=== PATIENT | female | born 1975 | race Caucasian/White ===

== ENCOUNTER 2017-06-01 05:58 | Inpatient (IN) | payer OTHER ==
[~2017-06-01 05:58] MED LIST: Buffered Lidocaine 0.9% SYRIN* 5 ML/SYR SYRINGE INTRADERM ONE
[2017-06-01] MEDS ORDERED: Scopolamine 1.5 mg* PATCH TRANSDERM ONE (06:00)
[2017-06-01] MEDS ORDERED: Dexamethasone IV* 4 MG/ML 1 ML (4 MG) IV SLOW PU ONE (06:00)
[2017-06-01] MEDS ORDERED: Famotidine IV* 10 MG/ML 2 ML (20 mg) IV ONE (06:00)
[2017-06-01] MEDS ORDERED: Famotidine IV* 10 MG/ML 2 ML (20 mg) ONE (06:08)
[2017-06-01] MEDS ORDERED: Dexamethasone IV* 4 MG/ML 1 ML (4 MG) ONE (06:09)
[2017-06-01] MEDS ORDERED: Buffered Lidocaine 0.9% SYRIN* 5 ML/SYR SYRINGE ONE (06:09)
[2017-06-01] MEDS ORDERED: Scopolamine 1.5 mg* PATCH ONE (06:09)
[2017-06-01] MEDS ORDERED: Clindamycin 900 MG IVPREMIX(* 900 MG/50 ML SDV IV ONE ×2 (06:09→07:00)
[2017-06-01] MEDS ORDERED: Ciprofloxacin 400MG IVPREMIX(* 400 MG/200 ML BAG IVPB ONE (07:00)
[2017-06-01] MEDS ORDERED: Ciprofloxacin 400MG IVPREMIX(* 400 MG/200 ML BAG ONE (07:24)
[2017-06-01] MEDS ORDERED: Bupivacaine 0.25% SDV* 30 ML ONE (07:30)
[2017-06-01] MEDS ORDERED: Lidocaine 2% PF * 5 ML VIAL ONE (07:39)
[2017-06-01] MEDS ORDERED: Propofol* 10 MG/ML 20 ML BTL IV PUSH ONE ×2 (07:39→08:12)
[2017-06-01] MEDS ORDERED: Midazolam* 1 MG/ML 5 ML VIAL (5 MG) ONE (07:40)
[2017-06-01] MEDS ORDERED: fentaNYL* 50 MCG/ML 2 ML VIAL (100 MCG VIAL) ONE ×3 (07:40→10:45)
[2017-06-01] MEDS ORDERED: Rocuronium* 10 MG/ML VIAL ONE (07:40)
[2017-06-01] MEDS ORDERED: PROCHLORPERAZINE INJ 5 MG/ML 2 ML VIAL IV PRN (07:45)
[2017-06-01] MEDS ORDERED: Acetaminophen IV 1GM/100ML * 1,000 MG/100 ML VIAL IVPB ONE (07:45)
[2017-06-01] MEDS ORDERED: Metoprolol Tartrate IV* 1 MG/ML 5 ML VIAL ONE (08:12)
[2017-06-01] MEDS ORDERED: Phenylephrine IV* 40 MCG/ML 10 ML SYRINGE ONE (08:36)
[2017-06-01] MEDS ORDERED: EPHEDrine (Pressors)* 50 MG/ML VIAL ONE (08:40)
[2017-06-01] MEDS ORDERED: Ondansetron INJ* 2 MG/ML VIAL ONE (08:49)
[2017-06-01] MEDS ORDERED: Glycopyrrolate IV* 0.2 MG/ML 1 ML VIAL ONE (09:17)
[2017-06-01] MEDS ORDERED: Neostigmine Methylsulfate* 2 MG/2 ML SYRINGE ONE (09:17)
[2017-06-01] MEDS ORDERED: Acetaminophen ADULT LIQ* 650 MG/20.3 ML UDC PO PRN (09:30)
[2017-06-01] MEDS ORDERED: diPHENhydraMINE IV* 50 MG/ML 1 ml VIAL (BENADRYL) SLOW PUSH PRN (09:30)
--- NOTE | 2017-06-01 09:30 | SURGPN ---
Brief Operative Note - Surgery Procedures: Procedures Pre-OP Diagnoses: Clinically severe obesity Post-op Diagnosis: same Procedure: Laparoscopic sleeve gastrectomy Surgeon: Andrew Asst: Alcon Mccain: CLAUDIO Trejo EBL: minimal IVF: 1600cc LR Specimen: portion of stomach Drains: none
[2017-06-01] MEDS ORDERED: PROCHLORPERAZINE INJ 5 MG/ML 2 ML VIAL ONE (09:53)
[2017-06-01] MEDS: fentaNYL* 50 MCG/ML 2 ML VIAL (100 MCG VIAL) IV PRN ×4 (09:53→11:17)
[2017-06-01] MEDS ORDERED: Acetaminophen IV 1GM/100ML * 100 ML ONE (09:53)
[2017-06-01] MEDS ORDERED: Famotidine IV * 20 MG in NS 0.9% 100 ML* 100 ML IVPB SCH (10:00)
[2017-06-01] MEDS: Ketorolac INJ* 30 MG/ML 1 ML VIAL IV PRN ×2 (12:25→20:25)
[2017-06-01] MEDS: Heparin VIAL(*) 5000 UNITS/ML VIAL (FIVE THOUSAND) SUBCUT SCH ×2 (14:20→22:59)
[2017-06-01] MEDS: HYDROmorphone INJ* 2 MG/ML CARPUJECT SYRINGE IV PRN (17:07)
[2017-06-01] MEDS: Ondansetron INJ* 2 MG/ML VIAL IV PRN (17:12)
[2017-06-01] MEDS: Famotidine IV* 10 MG/ML 2 ML (20 mg) IV SCH (18:30)
--- NOTE | 2017-06-02 01:21 | OP ---
CC: NICOL; Shalonda Cárdenas NP * DATE OF OPERATION: 06/01/17 - ROOM #353 DATE OF : 77 SURGEON: Greg Morales MD OIM ARCHITECT: SALONI Leon ANESTHESIOLOGIST: Gilberto Trejo MD ANESTHESIA: General anesthesia. PRE-OP DIAGNOSES: 1. Clinically severe obesity. 2. Obstructive sleep apnea. POST-OP DIAGNOSES: 1. Clinically severe obesity. 2. Obstructive sleep apnea. OPERATIVE PROCEDURE: Laparoscopic sleeve gastrectomy. ESTIMATED BLOOD LOSS: Minimal blood loss. FLUIDS: 1600 cc of crystalloid fluid given. SPECIMEN: Portion of stomach. DRAINS: None. DESCRIPTION OF PROCEDURE: The patient was identified in the preoperative area, marked, consent signed, case discussed with her again, and was taken to the operating room, placed on the operating room table in the supine position. Preoperative antibiotics were given. Sequential devices were placed on bilateral lower extremities. General anesthesia was induced. The patient's abdomen was prepped and draped in a standard surgical fashion. Time-out was performed. Folds of the umbilicus were elevated anteriorly and a Veress needle was inserted into the abdominal cavity, which was then allowed to insufflate to a pressure of 15 mmHg. The patient tolerated the insufflation well. A periumbilical incision was made. Scope was inserted through this and there was no evidence of injury from the trocar insertion or from the Veress needle, which was removed. Additional trocars were then placed in the following position: Two 5 mm along the left upper quadrant and a 12 mm in the right upper quadrant. Table was positioned with steep reverse Trendelenburg and Nia retractor was inserted through the subxiphoid incision and the liver was retracted anteriorly into the right. This exposed the gastroesophageal fat pad, which was grasped and retracted towards the right lower quadrant. Blunt and sharp dissection was carried out to expose the left thor. Next, a retrogastric window was made at approximately 6 cm proximal to the pylorus along the greater curvature. The vasculature to the greater curve was taken with LigaSure device right up to the angle of His where we had previously dissected. Posterior attachments were similarly taken until the stomach could be completely rotated. Next, a 60-mm purple TAI stapling device with reinforcement strips were inserted and we fired from the 6 cm proximal to the pylorus up towards the incisura. Prior to firing the stapler, a 40-Romansh bougie was inserted distal to this. We used additional loads to complete the sleeve stomach. The additional staplers were as follows, the 60 mm and then 3 additional 60 mm, and the final stapler was a 45-mm stapler, but we utilized an additional 45-mm stapler to complete the transection, even though we looked as though we were completely . This was just fired for completion sake. It should be noted that the last and most proximal of the 60-mm stapler appeared to go posteriorly after the bougie was removed. This appeared straight. There was no hiatal hernia. The fat pad was dissected free from the fundus of the stomach. The staple line did not corkscrew but did show this dip posteriorly and then come back up towards the anterior aspect after bougie removed. Review of the staple line showed no bleeding. Hemostasis was excellent. The stomach was then placed in the endoscopic retrieval bag and brought out through the right-sided 12-mm port without difficulty. The abdomen was allowed to collapse. Trocars removed under direct vision and all 5 skin incisions were reapproximated with skin emelina followed by sterile dressing. [id number]/[facility] #: [id number] IRIS
[2017-06-02] MEDS: Ondansetron INJ* 2 MG/ML VIAL IV PRN ×3 (01:33→19:21)
[2017-06-02] MEDS: HYDROmorphone INJ* 2 MG/ML CARPUJECT SYRINGE IV PRN (02:58)
[2017-06-02] MEDS: Metoclopramide IV* 5 MG/ML 2 ML VIAL IV PRN ×2 (03:44→17:38)
[2017-06-02] MEDS: Heparin VIAL(*) 5000 UNITS/ML VIAL (FIVE THOUSAND) SUBCUT SCH ×3 (06:06→22:41)
[2017-06-02] MEDS: Famotidine IV* 10 MG/ML 2 ML (20 mg) IV SCH ×2 (06:09→19:21)
[2017-06-02] MEDS: D5W 1/2 NS KCl 20 Meq 1000 ML* 1,000 ML IV SCH ×2 (07:57→17:37)
[2017-06-02] MEDS: Ketorolac INJ* 30 MG/ML 1 ML VIAL IV PRN ×2 (08:38→19:21)
--- NOTE | 2017-06-02 08:46 | RAD ---
INDICATION: Status post gastric sleeve procedure evaluate for leak. COMPARISON: Comparison is made with a prior upper GI series from March 26, 2016. Technique: An upper GI series exam was performed with Gastrografin contrast. Approximately 1.2 minutes of intermittent fluoroscopic guidance were used during the exam. Findings: The esophageal peristalsis appeared normal. The patient is status post gastric sleeve procedure. There is narrowing of the body and fundus of the stomach and mild irregularity in the mucosal pattern consistent with the patient's recent surgery. The stomach emptied normally. There is no evidence for intraperitoneal leakage of contrast. IMPRESSION: STATUS POST GASTRIC SLEEVE PROCEDURE, NO EVIDENCE FOR LEAK. CPT II Codes: 6045F
--- NOTE | 2017-06-02 15:36 | PN ---
Progress Note - Progress Note Date of Service: 06/02/17 SOAP: Subjective: Pt seen and examined. some nausea Objective: af vss lungs clear abdo: soft/ ND/ incisional tenderness dressing intact no calf tenderness Assessment: POD1 sleeve gastrectomy Plan: sheba brooks d/elisa planning
[2017-06-02] MEDS: HYDROcodone/ACET. 7.5/325 LIQ* 15 ML UDC PO PRN (16:43)
[2017-06-03] MEDS: D5W 1/2 NS KCl 20 Meq 1000 ML* 1,000 ML IV SCH (01:57)
[2017-06-03] MEDS: Famotidine IV* 10 MG/ML 2 ML (20 mg) IV SCH (05:44)
[2017-06-03] MEDS: Heparin VIAL(*) 5000 UNITS/ML VIAL (FIVE THOUSAND) SUBCUT SCH (05:44)
[2017-06-03] MEDS: Metoclopramide IV* 5 MG/ML 2 ML VIAL IV PRN (08:12)
[2017-06-03] MEDS: Ketorolac INJ* 30 MG/ML 1 ML VIAL IV PRN (08:13)
[2017-06-03] MEDS: HYDROcodone/ACET. 7.5/325 LIQ* 15 ML UDC PO PRN (08:13)
[2017-06-03] MEDS ORDERED: NS 0.9% 1000 ML* 1,000 ML IV ONE (10:21)
--- NOTE | 2017-06-03 11:47 | PN ---
Progress Note - Progress Note Date of Service: 06/03/17 SOAP: Subjective: Doing very well, ambulatory. Tolerating clear liquids, denies nausea or vomiting this AM. Objective: Awake and alert, comfortable and in NAD VSS, afebrile Lungs CTA bilat. Heart RRR, no murmurs Abdomen soft, NT, NT. Incisions C/D/I Ext. without edema Assessment: POD#2, s/p laparoscopic sleeve gastrectomy, doing well. Plan: D/C IVF D/C to home later this PM PPI and Lortab elixir at home F/U with bariatric office next week as scheduled.
[2017-06-03 12:02] VITALS: BP 116/75
--- NOTE | 2017-06-04 04:01 | DS ---
DISCHARGE SUMMARY: DATE OF ADMISSION: 06/01/17 DATE OF DISCHARGE: 06/03/17 PATIENT OF: Dr. Greg Morales. ADMISSION DIAGNOSIS: Clinically morbid obesity. DISCHARGE DIAGNOSIS: Clinically morbid obesity. ADMITTING PHYSICIAN: Greg Morales MD* (DICTATED BY SALONI MALCOLM) CONSULTATIONS: None. PROCEDURE: Laparoscopic sleeve gastrectomy on 06/01/17. HISTORY OF PRESENT ILLNESS: Margoth is a pleasant 42-year-old female who has been followed by the bariatric center in consideration to surgical weight loss. The patient had suffered from excessive body weight for almost all her adult life. She had tried multiple attempts to lose weight with exercise and dietary attempts that failed to maintain her weight loss. Because of her morbid obesity , the patient had associated comorbidities including chronic knee pain, back pain, and sleep apnea. She was seen by the bariatric center and she was found to be a good candidate for a sleeve gastrectomy to be performed on a later date. HOSPITAL COURSE: The patient was admitted on the same day in anticipation for surgery. She was taken to the operating room where she underwent a laparoscopic sleeve gastrectomy on 06/01/17. Her surgery went quite well with no immediate complications. After recovery, the patient was transferred to the surgical floor for observation. She did relatively well, with only mild incisional discomfort that was well tolerated using pain medicine. She was ambulatory, out of bed and in a stable condition. On following morning, she had an upper GI study that revealed no evidence of leakage. She started on bariatric clear liquids that she tolerated well with no complaints of nausea or vomiting. She continued to improve on the second day postoperatively and she will be ready to be discharged home on PPI and pain medication as needed. DISCHARGE MEDICATIONS: Include: 1. Omeprazole 20 mg capsules once daily. 2. Lortab and elixir 7.5/325 one tablespoon q.6 hours as needed for pain. PROBLEM LIST: Morbid obesity, status post laparoscopic sleeve gastrectomy on . SALONI MALCOLM [id number]/[facility] #: [id number] [facility]
[2017-06-04] MEDS ORDERED: Scopolamine PATCH Remove* 1 NOTE MISC PATCH OFF ONE (06:00)
== END 2017-06-03 14:00 | disposition home or self-care (01) | DRG 621 ==
LOC: AA 05:58 → SSU 12:01
PROVIDERS: ADMIT Surgery; ATTEND Surgery
PROC: 0DB64Z3 Excision of Stomach, Percutaneous Endoscopic Approach, Vertical (ICD-10-PCS; principal; 2017-06-01 07:45)
DX: E66.01 Morbid (severe) obesity due to excess calories (principal); G47.33 Obstructive sleep apnea (adult) (pediatric); G89.29 Other chronic pain; M25.569 Pain in unspecified knee; M54.9 Dorsalgia, unspecified; Z68.41 Body mass index [BMI] 40.0-44.9, adult
CPT/HCPCS: 43775; 74246; 88307; A9270-GY; J0744; J0780; J1100; J1170; J1644; J1885; J2250; J2405; J2704; J2765; J3010